=== PATIENT | male | born 1985 | race Caucasian/White ===

== ENCOUNTER 2019-01-04 06:04 | Inpatient (IN) | payer OTHER, SELFPAY ==
[2018-12-21 14:20] VITALS: BMI 20.7
[2019-01-04] VITALS (16 sets, daily range): BP systolic 119–149; BP diastolic 70–88; PULSE 72–93; RESP 10–18; TEMP 36.4–37.1; O2SAT 95–100; BMI 20.4
[2019-01-04] MEDS: LACTATED RINGERS 1,000 ML 42 ML IV ×2 (07:00→10:54)
--- NOTE | 2019-01-04 07:22 | PM.PREOP ---
Pre-operative Note Interval Note History & Physical reviewed/Exam performed by Physician: Yes Changes to H&P: No
[2019-01-04] MEDS: CEFAZOLIN 2 GM/100 ML FROZ.PIGGY IV ×2 (07:44→15:25)
--- NOTE | 2019-01-04 08:41 | SUR.OPER ---
Prone on spine table, head in foam head support, padded chest and pelvic supports, gel pad at knees, lower legs supported by pillows; nipples, genitalia and toes free of pressure, arms secured on foam padded arm boards at <90 degrees abduction. Tape over blanket at thigh secured to table.
[2019-01-04] MEDS: SODIUM CHLORIDE 0.9% 1,000 ML, GENTAMICIN 80 MG IRR (08:50)
[2019-01-04] MEDS: VANCOMYCIN 1,000 MG VIAL 1000 MG TOP (08:50)
[2019-01-04] MEDS: THROMBIN (RECOMBINANT) 5,000 UNIT VIAL 5000 UNIT TOP (08:53)
[2019-01-04] MEDS: BUPIVACAINE 0.5% (PF) 4 ML, MORPHINE-PF 4 MG, BUTORPHANOL 1 MG, fentaNYL 100 MCG INJ (08:56)
[2019-01-04] MEDS: ACETAMINOPHEN IV 1,000 MG/100 ML VIAL 400 MG IV (09:28)
--- NOTE | 2019-01-04 09:53 | PM.OP.1 ---
Operative Date/Time/Diagnoses Date of procedure: 01/04/19 Time of procedure: 09:54 Pre-op diagnosis: Recurrent lumbar disc herniation with radiculopathy Post-op diagnosis: same Procedure & Clinicians Procedure: Revision L5-S1 laminotomy Use of microscope L5-S1 TLIF (post/post innerbody fusion) with cage L5-S1 screws Iliac crest bone graft Placement of an epidural catheter Same procedure as scheduled: Yes Indications: [age] year old male with intractable pain from a recurrent disc herniation. They had failed conservative management and requested operative intervention. Risks and benefits of surgery were discussed and appropriate consents were obtained. Surgeon: Wilder Goldsmith Compounder Helper: Kay Merino Anesthesia Type: General Operative Notes Findings: None Closure Type: primary Specimen(s): none sent Prosthetic devices, grafts, tissues, transplants, or devices: NuVasive MAS Reline screws Globus Rise cage Applied: catheter Estimated Blood Loss (mL): 10 Blood products transfused: none Procedure in detail: The patient was brought to the operating room and intubated on the table. A time-out was performed. They were then rolled over to the well-padded Calixto table in the prone position. Preoperative antibiotics were given. The back was prepped and draped in the standard sterile fashion. Using fluoroscopy, a 4 cm longitudinal incision was made to the left of the midline. We used Bovie to come down to and split the lumbodorsal fascia. Using fluoroscopy and monitoring, we then percutaneously placed Jamshidi needles down the pedicles of L5 and S1 on the left side. These were changed out to guidewires and then we tapped and then placed the NuVasive MAS Reline screw shanks. We then opened up the retractors and used Bovie to clear up the posterolateral gutter as well as medially along the lamina with care at the edge of his previous laminotomy. A bur was used to decorticate the transverse process and ala. We brought in the microscope. Using a combination of bur and Kerrison rongeurs, a revision left-sided laminotomy. We took more bone and did a partial facetectomy. We cleared out the neural foramen. We then began working more along the medial aspect and dissecting the scar tissue off the dura. We carefully peeled this off until the dura was more mobile. It was still adherent to the disc tissue underneath. We used the [place] and ball probe to carefully dissect the dura medially over the disc herniation. There was an extremely large disc herniation which corresponded with his MRI. Once we had the dura free, and an annulotomy was performed with a scalpel and pituitary was used to perform the diskectomy. This completed the revision diskectomy at L5-S1. This was separate and distinct from the TLIF approach as we had to do a revision laminotomy and revision diskectomy which had much more extensive time and risk decompressing through the scar tissue. We then began the TLIF prep. The remainder of the facetectomy was performed on this side at L5-S1. We carefully cleaned up the remainder of the foramen until we could easily retract the exiting root as well as clearing medially below the dura and expose the disc space. We performed a diskectomy using a combination of paddles, shanti, pituitaries, and curettes. We distracted the disc using a paddle and locked the retractor in an open position. We then filled the disc space with Osteocell bone graft. We then placed the globus Rise cage under fluoroscopy and then filled this in with more bone graft. The distraction on the retractor was released to compress down. This completed the posterior interbody fusion portion of the TLIF at L5-S1. We then placed the screw heads, paresh, and locked down the set screws. The wound was copiously irrigated. A small stab incision was made over the PSIS. We used a Jamshidi needle to aspirate several mL of bone marrow from the pelvis. This was mixed with the remaining Osteocell and combined with all of the locally harvested bone graft and placed in the posterolateral gutter for the posterior fusion of the TLIF at L5-S1. An epidural catheter was then placed in the spinal canal by carefully depressing the dura and advancing it 6 cm cephalad under the remaining lamina without resistance. The muscle fascia was closed. The catheter was then injected with a solution containing 4 mL of 0.5% Marcaine, 1 mg Stadol, 4 mg Duramorph, and 100 mcg of fentanyl. This was injected without resistance and the catheter was pulled. We then went to the opposite side. Again using fluoroscopy, a 3 cm incision was made and Bovie was used to come down to split the fascia. Using neural monitoring and fluoroscopy, Jamshidi needles were advanced down the pedicles of L5 and S1 on the right side. These were switched over guidewires, tapped, and screws placed. We then placed a paresh and locked the set screws on this side. The wound was irrigated. The fascia was closed. Vancomycin powder was placed in the wounds. The superficial and skin were closed. A sterile dressing was placed. The patient was then rolled over extubated and brought to recovery room without complications. Complications: none Condition: stable Disposition: PACU Plan for aftercare: Inpatient. Up with physical therapy.
--- NOTE | 2019-01-04 10:10 | DI.RAD.S_ITS ---
PROCEDURE: XR LUMBAR SPINE 2-3V INDICATIONS: L5-S1 TLIF TECHNIQUE: 2 views of the lumbar spine were acquired. [facility], [facility], 9:07. FINDINGS: 2 intraoperative fluoroscopy images demonstrate discectomy and posterior fusion at L5-S1. The alignment is normal. Surgical hardware appear in appropriate position. IMPRESSION: Discectomy and posterior fusion at L5-S1. Dictated by: Klaus Mcadams M.D. on 01/04/2019 at 10:22 Approved by: Klaus Mcadams M.D. on 01/04/2019 at 10:23
[2019-01-04] MEDS: HYDROMORPHONE 2 MG INJ 1 MG IV ×2 (10:28→10:39)
[2019-01-04] MEDS: hydrOXYzine 50 MG/ML INJ 25 MG IM (10:44)
[2019-01-04] MEDS: OXYCODONE IR 5 MG TABLET PO ×2 (10:56→12:16)
[2019-01-04] MEDS: LACTATED RINGERS 1,000 ML 125 ML IV ×2 (12:00→21:02)
[2019-01-04] MEDS: hydrOXYzine pamoate 25 MG CAPSULE PO (12:16)
--- NOTE | 2019-01-04 12:38 | SUR.PHASEI ---
late entry: pt arrived awake to pacu, dressing remained c/d/i, pain treated with dilaudid, oxycodone and vistaril. pt transported up to room and left in stable condition.
--- NOTE | 2019-01-04 14:38 | PC.NURSE ---
Ortho: Epidural - can move feet but has decreased sensation from epidural. Does have pain down the lt side of back and down leg but it is not as intense as it was this am. Cont pulse ox on and same was explained, O2 sats have been 94% and greater. Spouse at the bedside. Dressing is dry and intact. Forrest removed at end of case, has not voided since. Did try once with . PT will be here later to eval and stand at bedside. He might be able to void then. Needs cues to log roll but is able to verb his lami precautions. He reports the doctor told him he was a 3 pound limit for weight instead of our usual 10. Is is to follow the doctors orders. Resting comfortably at the moment.
[2019-01-04] MEDS: diphenhydrAMINE 25 MG TABLET PO ×2 (15:08→21:08)
[2019-01-04] MEDS: OXYCODONE IR 5 MG TABLET 10 MG PO ×2 (16:02→19:30)
--- NOTE | 2019-01-04 17:17 | PT.IIE ---
Current Diagnoses Intervertebral disc disorders with radiculopathy, lumbar region (01/04/19) Strain of muscle, fascia and tendon of lower back, initial encounter (01/04/19) Other specified postprocedural states (01/04/19) Surgery Performed Operation Date: 01/04/19 07:45 Actual Procedures p L5-S1 Redo discectomy w/Instru. fusion & bone graft - Wilder Goldsmith MD Surgical History (Last Updated 12/21/18 @ 14:33 by Joanie Jones RN) History of intestinal surgery (Acute) Hx of appendectomy (Acute) Hx of elbow surgery (Acute) Hx of lumbar discectomy (Acute) Hx of tonsillectomy (Acute) Medical History (Last Updated 12/21/18 @ 14:33 by Joanie Jones RN) Back pain with sciatica (Acute) Heartburn (Acute) Numbness and tingling (Acute) Skull fracture (Acute) Physical Therapy Inpatient Evaluation/Re-Eval M1 PT/OT-IP Prior Functional Status Start: 01/04/19 16:43 Freq: NEEDED Status: Active Protocol: Document 01/04/19 16:44 EA (Rec: 01/04/19 17:17 EA [id number]) Medical Review Prior Functional Status Medical History Reviewed Yes Diet/Fluid Consistency Regular Communication Alert, O x 3 Mobility and Gait Independent with ability walk > 2 blocks with no AD. No history of fall in the last 6 months Activities of Daily Living and IADL's Indep Prior Functional Level (Other details) Patient had an injury in 2014 and back surgery; states out of work since the injury and until to this date. Patient reports last injury happens while he was playing to his daughter and suddenly his back locked. Social History Household Members spouse children Living Arrangements House Number of Floors (Floors) Two Floors Number of Stairs To Enter/Railing? 1 step to get in to the main floor and 12 steps to get up the main bed room Home Environment Standard Height Toilet Additional Social History Comment Off work due to injury and patient is on L& I since 2014. Lives with his and two children. M2 PT-IP Current Condition Start: 01/04/19 16:43 Freq: NEEDED Status: Active Protocol: Document 01/04/19 16:44 EA (Rec: 01/04/19 17:17 EA [id number]) Physical Therapy Current Condition Precautions Lumbar Precautions Log Roll No Twisting Limit Bending Lifting Restriction of 10 lbs Gait Belt above Incisional Area Weight Bearing Status Weight Bearing Status Weight Bear as Tolerated M3 PT-IP Subjective Start: 01/04/19 16:43 Freq: NEEDED Status: Active Protocol: Document 01/04/19 16:44 EA (Rec: 01/04/19 17:17 EA [id number]) Subjective Physical Therapy Visit Type Type Initial Evaluation Visit Start Time 15:15 Visit Stop Time 15:45 Total Visit Minutes 45 Number of POUNCING MACHINE OPERATOR Visits 0 Physical Therapy Visit Comments Patient Comments Patient would like to use the bathroom. Patient Goals Patient would like to be discharge tomorrow and hoping be able to walk and transfers without assistance Therapy Pain Assessment Pain When Pain Assessed At Rest Pain Present Pain Present Pain Reported Location Lower Back Intensity 2 Scale Used Numeric (1 - 10) Description Acute M4 PT-IP Mobility and Gait Start: 01/04/19 16:43 Freq: NEEDED Status: Active Protocol: Document 01/04/19 16:44 EA (Rec: 01/04/19 17:17 EA [id number]) PT-Bed Mobility Assessment Rolling Type of Rolling Log Rolling Roll to Left Level of Assist Standby Assistance Supine to Sit Supine to Sit Contact Guard Assistance Sit to Supine Sit to Supine Contact Guard Assistance Scooting Scooting to Edge of Bed Standby Assistance PT-Transfer Assessment Sit to and From Stand Sit to and from Stand Standby Assistance Equipment Transfer Assistive Device Gait Belt Transfers Transfer Destination Bed Toilet Transfer Technique stepping Transfer Ability Level of Assist Contact Guard Assistance Comments Mobility Comments No dizziness and understands safety. Uses IV pole to left hand for support during transfer slight instability and decreased tolerance. Vitals: 143/83, 92bpm (after) 129/60, 92 (prior) Gait Assessment Gait Gait Assistance Required: Standby Assistance Distance (Feet) 20 Assistive Devices Assistive Device Gait Belt Gait Deviations General Gait Pattern Within Normal Limits Factors Limiting Gait Function Factors Limiting Gait Function Decreased Activity Tolerance Pain PT-Balance Assessment Sitting Balance and Reactions Static Sitting Balance Ability Good Dynamic Sitting Balance Ability Good Standing Balance and Reactions Static Standing Balance Ability Good Dynamic Standing Balance Ability Fair M5 PT-IP Objective Assessments Start: 01/04/19 16:43 Freq: NEEDED Status: Active Protocol: Document 01/04/19 16:44 EA (Rec: 03/21/19 17:17 EA [id number]) Orientation Orientation/Cognition Level of Alertness Alert Orientation Name Age Language Function Ability No Deficits Noted Safety Awareness Understands Safety Issues Memory Description No Deficits Noted Gross Range of Motion Upper Extremity ROM Assessment Within Functional Limits Lower Extremity ROM Assessment Within Functional Limits Strength Upper Extremity Strength Assessment Within Functional Limits Lower Extremity Strength Assessment Within Functional Limits Comments Strength Comments Patient exhibits decreased tolerance to standing mobility with slight instability noted that requires him to use IV pole to support his balance. Patient tolerated 20 ft of amb with no nausea or dizziness. Patient requires assistance at this time for safety. He will benefit with skilled PT to reach independent mobility prior to discharge. Coordination Assessment Gross Coordination Gross Coordination WNL Assessment Finger to Nose Test Normal Performance Sensation Assessment Sensation Gross Sensation WNL Light Touch Intact Proprioception (Position) Intact M6 PT-IP Treatment Start: 01/04/19 16:43 Freq: NEEDED Status: Active Protocol: Document 01/04/19 16:44 EA (Rec: 01/04/19 17:17 EA [id number]) Physical Therapy Treatment Education Education Provided Precautions Weight Bearing Status Post-Op Packet Safety M7 PT-IP Assessment and Plan Start: 01/04/19 16:43 Freq: NEEDED Status: Active Protocol: Document 01/04/19 16:44 EA (Rec: 01/04/19 17:17 EA [id number]) PT Summary Assessment and Plan Potential Rehabilitation Potential Good Status of Condition at Evaluation Stable Summary Impairments Pain Strength Balance Bed Mobility Transfers Gait Activity Tolerance Progress Towards Goals Progressing Toward Goals Goals Bed Mobility Goal Independent Transfer Goal Independent Gait Goal Independent Gait Distance 150 ft Other Goals 12 steps w/ single rail Days to Meet Goals 2 Frequency of Treatment Frequency Of Treatment Twice a Day Treatment Plan Physical Therapy Treatment Plan Bed Mobility Training Transfer Training Gait Training Therapeutic Exercise Post Op Education Discharge Planning Hot or Cold Pack Recommendations To Nursing Amount of Assist Needed 1 Person Assist Discharge Recommendations PT Discharge Recommendations Home with Assistance
[2019-01-05] MEDS: CEFAZOLIN 2 GM/100 ML FROZ.PIGGY IV (00:32)
[2019-01-05] MEDS: OXYCODONE IR 5 MG TABLET 10 MG PO ×4 (00:42→13:47)
[2019-01-05] MEDS: hydrOXYzine pamoate 25 MG CAPSULE PO ×4 (00:42→13:47)
[2019-01-05 00:50] VITALS: BP 123/68; PULSE 86; RESP 16; TEMP 36.6; O2SAT 99
[2019-01-05] MEDS: LACTATED RINGERS 1,000 ML 125 ML IV (05:40)
[2019-01-05 05:49] VITALS: BP 112/58; PULSE 74; RESP 16; TEMP 36.5; O2SAT 100
[2019-01-05 05:53] LABS: Hematocrit 37.3 % (41-53); Hemoglobin 12.5 g/dL (13.5-17.5)
[2019-01-05] MEDS: DOCUSATE 100 MG CAPSULE PO (07:51)
[2019-01-05] MEDS: CYCLOBENZAPRINE 10 MG TABLET PO (07:51)
[2019-01-05] MEDS: GABAPENTIN 100 MG CAPSULE PO (07:51)
--- NOTE | 2019-01-05 08:02 | PM.PNPO.1 ---
Subjective Date Patient Seen: 01/05/19 Time Patient Seen: 08:02 Interval history: He is doing very well. Some discomfort in the left lower back but the legs are fine. He had significant pain in the back with urinary retention yesterday. His Forrest was replaced and he had 1400 mL output. Tremendous relief of this pain once this was taken care of. Exam Vital Signs (past 8 hours): - 01/05/19 00:50 01/05/19 05:49 Temperature 97.8 F 97.7 F Pulse Rate 86 74 Respiratory Rate 16 16 Blood Pressure 123/68 112/58 L Pulse Oximetry 99 100 Oxygen Delivery Method Room Air Oxygen Flow Rate 0 Const Orientation: alert and oriented x3 Back/Spine/Pelvis Other: CDI. 5/5 motor both lower extremities. Objective Labs Result Diagrams: 01/05/19 05:38 Labs: Laboratory Results - last 24 hr 01/05/19 05:38 Hgb 12.5 L Hct 37.3 L Assessment & Plan Post-op Postoperative Procedures Operation Date: 01/04/19 07:45 Actual Procedures Side Surgeon p L5-S1 Redo discectomy w/Instru. fusion & bone graft Wilder Goldsmith MD He is doing very well today. I explained his epidural pain relief will probably wear off and pain levels will probably increase a little. Removed the catheter today. Anticipate discharge home tomorrow.
--- NOTE | 2019-01-05 08:08 | PM.PNPO.1 ---
Subjective Date Patient Seen: 01/05/19 Time Patient Seen: 08:09 Interval history: He is doing very well. He has been out of bed and walking around twice today. Pain is manageable on medication. Exam Vital Signs (past 8 hours): - 01/05/19 00:50 01/05/19 05:49 Temperature 97.8 F 97.7 F Pulse Rate 86 74 Respiratory Rate 16 16 Blood Pressure 123/68 112/58 L Pulse Oximetry 99 100 Oxygen Delivery Method Room Air Oxygen Flow Rate 0 Const Orientation: alert and oriented x3 Back/Spine/Pelvis Other: Mild drainage at the bottom. 5/5 motor both lower extremities. Objective Labs Result Diagrams: 01/05/19 05:38 Labs: Laboratory Results - last 24 hr 01/05/19 05:38 Hgb 12.5 L Hct 37.3 L Assessment & Plan Post-op Postoperative Procedures Operation Date: 01/04/19 07:45 Actual Procedures Side Surgeon p L5-S1 Redo discectomy w/Instru. fusion & bone graft Wilder Goldsmith MD He is doing very well after his hardware exchange and refusion. He feels comfortable with going home today. Plan for discharge after physical therapy.
[2019-01-05 09:34] VITALS: BP 110/59; PULSE 80; RESP 16; TEMP 36.8; O2SAT 97
--- NOTE | 2019-01-05 10:35 | PT.IPTN ---
Current Diagnoses Intervertebral disc disorders with radiculopathy, lumbar region (01/04/19) Strain of muscle, fascia and tendon of lower back, initial encounter (01/04/19) Other specified postprocedural states (01/04/19) Surgery Performed Operation Date: 01/04/19 07:45 Actual Procedures p L5-S1 Redo discectomy w/Instru. fusion & bone graft - Wilder Goldsmith MD Physical Therapy Treatment Note M2 PT-IP Current Condition Start: 01/04/19 16:43 Freq: NEEDED Status: Active Protocol: Document 01/05/19 08:02 DLM (Rec: 01/05/19 08:02 DLM [id number]) Physical Therapy Current Condition Current Condition Evaluation Date 01/04/19 Treatment Diagnosis L5-S1 TLIF Onset Date 01/04/19 Precautions Lumbar Precautions Log Roll No Twisting Limit Bending Lifting Restriction of 10 lbs Gait Belt above Incisional Area M3 PT-IP Subjective Start: 01/04/19 16:43 Freq: NEEDED Status: Active Protocol: Document 01/05/19 10:35 GGD (Rec: 01/05/19 11:55 GGD [id number]) Subjective Physical Therapy Visit Type Type Treatment Note Visit Start Time 10:20 Visit Stop Time 10:40 Total Visit Minutes 20 Number of CUSTOMER ACCOUNT SPECIALIST Visits 1 Physical Therapy Visit Comments Patient Comments Pt willing to work with therapy. M4 PT-IP Mobility and Gait Start: 01/04/19 16:43 Freq: NEEDED Status: Active Protocol: Document 01/05/19 10:35 GGD (Rec: 01/05/19 11:55 GGD [id number]) PT-Transfer Assessment Sit to and From Stand Sit to and from Stand Standby Assistance Equipment Transfer Assistive Device None Gait Belt Front Wheeled Walker Transfers Transfer Destination Chair Transfer Ability Level of Assist Contact Guard Assistance Gait Assessment Gait Gait Assistance Required: Standby Assistance Distance (Feet) 780 Assistive Devices Assistive Device None Gait Belt Front Wheeled Walker Gait Deviations General Gait Pattern Within Normal Limits Factors Limiting Gait Function Factors Limiting Gait Function Decreased Activity Tolerance Pain Comments Gait Comments Pt Ambulated 450 feet with FWW and then 330 feet without. Stair Climbing Assessment Evaluation Level of Assist On Stairs Standby Assistance Devices Stair Climbing Assistive Devices None Right Railing Technique/Endurance Stair Climbing Direction Ascend and Descend Stair Climbing Technique Step Over Step Step to Step Number of Steps Climbed 3 Query Text: Stair Climbing Set # Repetitions (reps) 3 Comments Stair Climbing Comments Pt 1 set of stairs with right rail and step. 1 set with right rail with step over step . 1 set without rails and step over step. M5 PT-IP Objective Assessments Start: 01/04/19 16:43 Freq: NEEDED Status: Active Protocol: Document 01/04/19 16:44 EA (Rec: 01/04/19 17:17 EA [id number]) Orientation Orientation/Cognition Level of Alertness Alert Orientation Name Age Language Function Ability No Deficits Noted Safety Awareness Understands Safety Issues Memory Description No Deficits Noted Gross Range of Motion Upper Extremity ROM Assessment Within Functional Limits Lower Extremity ROM Assessment Within Functional Limits Strength Upper Extremity Strength Assessment Within Functional Limits Lower Extremity Strength Assessment Within Functional Limits Comments Strength Comments Patient exhibits decreased tolerance to standing mobility with slight instability noted that requires him to use IV pole to support his balance. Patient tolerated 20 ft of amb with no nausea or dizziness. Patient requires assitance at this time for safey. He will benefit with skilled PT to reach independent mobility prior to discharge. Coordination Assessment Gross Coordination Gross Coordination WNL Assessment Finger to Nose Test Normal Performance Sensation Assessment Sensation Gross Sensation WNL Light Touch Intact Proprioception (Position) Intact M6 PT-IP Treatment Start: 01/04/19 16:43 Freq: NEEDED Status: Active Protocol: Document 01/05/19 10:35 GGD (Rec: 01/05/19 11:55 GGD [id number]) Physical Therapy Treatment Education Education Provided Precautions Safety M7 PT-IP Assessment and Plan Start: 01/04/19 16:43 Freq: NEEDED Status: Active Protocol: Document 01/05/19 10:35 GGD (Rec: 01/05/19 11:55 GGD [id number]) PT Summary Assessment and Plan Frequency of Treatment Frequency Of Treatment Twice a Day Treatment Plan Physical Therapy Treatment Plan Bed Mobility Training Transfer Training Gait Training Therapeutic Exercise Post Op Education Discharge Planning Hot or Cold Pack Other Recommendations and Next Treatment bed mobility and sit to stand Focus Recommendations To Nursing Amount of Assist Needed 1 Person Assist Discharge Recommendations PT Discharge Recommendations Home with Assistance
[2019-01-05] MEDS: ACETAMINOPHEN 325 MG TABLET 650 MG PO (12:07)
--- NOTE | 2019-01-05 12:19 | OT.IP.EVAL ---
Current Diagnoses Intervertebral disc disorders with radiculopathy, lumbar region (01/04/19) Strain of muscle, fascia and tendon of lower back, initial encounter (01/04/19) Other specified postprocedural states (01/04/19) Surgery Performed Operation Date: 01/04/19 07:45 Actual Procedures p L5-S1 Redo discectomy w/Instru. fusion & bone graft - Wilder Goldsmith MD Past Medical History (Last Updated 12/21/18 @ 14:33 by Joanie Jones RN) Back pain with sciatica (Acute) Heartburn (Acute) Numbness and tingling (Acute) Skull fracture (Acute) Surgical History (Last Updated 12/21/18 @ 14:33 by Joanie Jones RN) History of intestinal surgery (Acute) Hx of appendectomy (Acute) Hx of elbow surgery (Acute) Hx of lumbar discectomy (Acute) Hx of tonsillectomy (Acute) Occupational Therapy Inpatient Evaluation/Re-Eval M3 OT- IP Subjective and Pain Start: 01/05/19 12:04 Freq: Status: Active Protocol: Document 01/05/19 12:05 [facility] (Rec: 01/05/19 12:19 [facility] [id number]) OT- Subjective Occupational Therapy Visit Type Type Initial Evaluation Visit Start Time 10:10 Visit Stop Time 10:55 Total Visit Minutes 45 Occupational Therapy Visit Comments Patient Comments Pt agreeable to do OT eval, pt ' present and 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 OT Pain Assessment Pain When Pain Assessed At Rest Pain Present Pain Present Pain Reported Location Lower Back Intensity 5 Scale Used Numeric (1 - 10) M4 OT- IP ADL's Start: 01/05/19 12:04 Freq: Status: Active Protocol: Document 01/05/19 12:05 [facility] (Rec: 01/05/19 12:19 [facility] [id number]) OT ADL-Dressing General Eval Upper Body Dressing Ability Standby Assistance Lower Body Dressing Ability Maximum Assistance Areas Needing Assistance Pants/Shorts Socks Shoes Comments OT Dressing Comments Prior to education of LB AED, pt needing MAX A for Lb dressing. Pt educated and still needing vc for use of sock aid and ESTUARDO for shoes. OT ADL-Toileting Comments OT Toileting Comments Pt's catheter just taken out, educated to stand for pericare needs. OT ADL-Bathing Comments OT Bathing Comments Pt's will assist pt for shower here and aware of all back precautions and needs. Pt may need shower chair pending pt's ability to stand, otherwise for safety if needing a place to sit. M5 OT- IP IADL's Start: 01/05/19 12:04 Freq: Status: Active Protocol: Document 01/05/19 12:05 [facility] (Rec: 01/05/19 12:19 [facility] [id number]) OT-Instrumental Activities of Daily Living Money Management Money Management Caregiver Provides Assistance Meal Preparation Meal Preparation Caregiver Provides Assist Database Developer Database Developer Caregiver Provides Assist Driving Driving Caregiver Provides Assist M6 OT- IP Functional Cognition Start: 01/05/19 12:04 Freq: Status: Active Protocol: Document 01/05/19 12:05 [facility] (Rec: 01/05/19 12:19 [facility] [id number]) Cognitive Factors Limiting Selfcare Function Cognitive Ability Level of Alertness Alert Patient Orientation Name Age Birthday Month Date Year Day of Week Place Situation Attention Span Ability Capable of Focused Attention Capable of Sustained Attention Ability to Follow Commands Able to Follow One Step Commands Memory Description Short Term Impaired Safety Awareness Decreased Ability to Apply Precautions Underestimates Need for Assistance Problem Solving Ability Needs Assist to Identify Solutions Cognitive Comments Cognitive Assessment Comments Pt needing concrete commands and repeat instructions of how to use socks aid. Pt appears a bit groggy at times. Pt needing cues to follow back precautions as at times forgets not to twist or bend. OT- Vision and Hearing OT- Hearing Assessment OT- Hearing Assessment WFL M7 OT- IP Mobility and Balance Start: 01/05/19 12:04 Freq: Status: Active Protocol: Document 01/05/19 12:05 [facility] (Rec: 01/05/19 12:19 [facility] [id number]) OT-Transfer Assessment Sit to and From Stand Sit to and from Stand Standby Assistance Transfers Transfer Ability Standby Assistance Technique Transfer Destination Bed Chair Devices Transfer Assistive Devices None Gait Belt Comments Mobility Comments SBA for flat surfaces, pt tends to have a very wide base of support. Pt actually walks better without FWW as able to take wider steps to help his balance better. Pt needing cues to bend at hip and lean forwards so able to use legs better to latin teacher addition to use of hand on surface to push off of. 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 part of the session OT- Balance Assessment Sitting Balance and Reactions Static Sitting Balance Ability Normal Dynamic Sitting Balance Ability Good Standing Balance and Reactions Static Standing Balance Ability Good Dynamic Standing Balance Ability Fair M8 OT- IP Objective Assessments Start: 01/05/19 12:04 Freq: Status: Active Protocol: Document 01/05/19 12:05 [facility] (Rec: 01/05/19 12:19 [facility] [id number]) OT Gross Range of Motion Upper Extremity Range of Motion Assessment Within Functional Limits M9 OT- IP Assessment and Plan Start: 01/05/19 12:04 Freq: Status: Active Protocol: Document 01/05/19 12:05 [facility] (Rec: 01/05/19 12:19 [facility] [id number]) OT Summary Assessment and Plan Potential Rehabilitation Potential Good Analytic Complexity at Evaluation Low Summary OT Impairments Pain Balance Functional Cognition Bathing Progress Towards Goals Progressing Toward Goals Slow Progress due to Pain Slow Progress due to Cognition Assessment Summary Pt low complexity and main barriers are steps , needing reminders to follow back precautions, and pain. Pt's has good understanding to assist pt at home and will be there to assist at all times. Otherwise pt's kids can also assist. Pt issued LB AED. Pt to go home with when medically stable. Goals Patient/Caregiver Education Goal Demonstrate Post-Op Precautions Caregiver Independent Assisting Patient Days to Meet Goals 2 Frequency of Treatment Frequency Of Treatment Once a Day Treatment Plan OT Treatment Plan Functional Cognition Training Patient/Family Education Discharge Planning Other Treatment Recommendations and Next Finalize all OT needs Treatment Focus Discharge Recommendations OT Discharge Recommendations Home with Assistance Home Equipment Needs shower stool/chair
--- NOTE | 2019-01-05 12:25 | PC.NURSE ---
Ortho: Nervous about voiding. Forrest out, has voided x2, first time 25mls, second time 125mls. If sm amts cont will bladder scan later today. Pt doesn't think he will have a problem since he is able to get at least some urine out. Will monitor voiding. Worked w/PT and has been d/c from their perspective. OT has been working w/pt, they discussed shower, spouse did the shower with pt since he felt more comfortable with her. Dressing changed to cover site. Bilat incsions are sutured w/minimal redness. No drainage seen. Pt is tolerating diet w/out problems and po pain meds have been effective. If he has no problems with voiding he feels as if he could d/c home later today. Cont w/poc.
--- NOTE | 2019-01-05 13:03 | OT.IP.TRT ---
Current Diagnoses Intervertebral disc disorders with radiculopathy, lumbar region (01/04/19) Strain of muscle, fascia and tendon of lower back, initial encounter (01/04/19) Other specified postprocedural states (01/04/19) Surgery Performed Operation Date: 01/04/19 07:45 Actual Procedures p L5-S1 Redo discectomy w/Instru. fusion & bone graft - Wilder Goldsmith MD Occupational Therapy Treatment Note M2 OT-IP Current Condition Start: 01/05/19 12:04 Freq: Status: Active Protocol: Document 01/05/19 12:05 [facility] (Rec: 01/05/19 12:19 [facility] [id number]) Occupational Therapy Current Condition Current Condition Evaluation Date 01/05/19 Treatment Diagnosis Recurrent lumbar disc herniation with radiculopathy Diagnosis Onset Date 01/04/19 Post Operative Precautions Lumbar Precautions Log Roll No Twisting Limit Bending Lifting Restriction of 10 lbs Gait Belt above Incisional Area M3 OT- IP Subjective and Pain Start: 01/05/19 12:04 Freq: Status: Active Protocol: Document 01/05/19 13:01 [facility] (Rec: 01/05/19 13:03 [facility] [id number]) OT- Subjective Occupational Therapy Visit Type Type Administrative Note Notes Pt will benefit from shower chair, per pt unable to stand for shower with and needing to sit to shower. Therefore also BSC would also be beneficial to pt as pt heavily relies on his arms to help to stand by pushing from surface sitting on to come to stand.
--- NOTE | 2019-01-05 13:44 | CM.DANOTE ---
Discharge Planning/Care Management DCP: assessment: case received and discussed in Team Rounds. Pt is a 33 year old male who admitted yesterday to Dr. Goldsmith for a planned spinal surgery. PT and OT saw him today. Payer: [facility] Urinary retentition was noted by Dr. Goldsmith and a shelby catheter was placed. The plan earlier today was for pt to stay until tomorrow as epidural wore off and to insure that he was voiding appropriately. OT noted pt would need a shower chair, BSC and single point cane at d/c/he wished to have a script to get same through [facility]. Met now with pt and his . Introduced self and role. Pt has now been ok'd for d/c today as he has voided increasing amts of urine. RN Galina confirms same. He says he is very pleased he can go home today and his says they are aware that they need to make sure he keeps voiding appropriately. Orders for the needed DME were obtained and copy to patient. He says he will purchase the items if need be but wants to make sure he also runs it through his insurance. CM Discharge Assessment Start: 01/05/19 13:42 Freq: Status: Active Protocol: Document 01/05/19 13:43 ITV (Rec: 01/05/19 13:43 ITV [id number]) Discharge Planning Assessment Advance Directives? No: Information mailed to patient Advance Directives on File No History Provided By Patient Family Member Medical Record Prior Living Arrangements House Household Members spouse children Independent with ADL's Yes Is patient alert and oriented? Yes Whiteboard Updated in Patient Room with Yes name and ext. # of Manager Of Production Review Status In Process Next Review Type Continued Stay Review Pre-Anesthesia Assessment Start: 12/21/18 14:01 Freq: Status: Complete Protocol: Document 12/21/18 14:20 [facility] (Rec: 12/21/18 14:53 [facility] [id number]) Pre-Anesthesia Assessment Patient Information Reviewed Via Phone Assessment Assessment Completed With Patient Diagnostic Results CBC Comment Outside labs-CBC done 12/27/18 Seen Specialist in Last 12 Months Yes Specialist Seen Orthopedist Primary Language Vietnamese Creative Director Required No Height 175.26 cm Weight 63.503 kg Body Mass Index (BMI) 20.7 Hearing Ability Normal Visual Impairment No Limitations Visual Assist None Dentition Type Teeth, Natural Present Barriers to Learning None Other Aids No Hx Anesthesia Reactions No Hx Family Anesthesia Reaction No Hx Malignant Hyperthermia No Hx Blood Transfusions No Anesthesia Review Requested No Dry Transfer Man No alcohol intake never Smoking Status Former smoker how long ago did patient quit smoking Quit 10/03 Substance Use Type marijuana Comment Pt advised not to smoke 24 hours prior to surgery Pain Present Pain Reported Musculoskeletal Symptoms Abnormal Gait Back Pain Difficulty Walking Joint Pain Numbness Radiating Pain into Limb Tingling History of Falling (Recent or History of Yes ) Patient is completely paralyzed or No completely immobile Mental Status Oriented to own ability Is patient on oxygen? No Does patient have WONG/SOB No Hx Sleep Apnea No Currently Taking a Beta Joellen No Can You Climb a Flight of Stairs Without Yes SOB Hx Chest Pain No Hx SOB No Hx Syncope or Dizziness Yes: Syncopal episode x 1 month ago, got up quickly Anti-Coagulant Therapy No Has a Configuration Consultant No Cardiac Testing No Hx Pacemaker/ICD No Pacemaker Rep Required? No Cardiac Clearance Received Not Applicable Diet Type At Home Regular dysphagia No Urinary Catheter Present No Hx Urinary Self Catheterization No Diabetes No Hx Drug Resistant Organism No Presence of External or Internal Medical No Devices Have you traveled outside the [facility] States in the last 30 days? Marital Status Lives With spouse children Prior Living Arrangements House Number of Floors (Floors) Two Floors Number of Stairs To Enter/Railing? none Support System Spouse Does the Patient Have Assistance After Yes Surgery Patient Discharge Plan Description Return Home Feels Safe in Current Environment Yes Been Physically Hurt or Threatened By a No Person in Current Environment Do you have thoughts of harming yourself None or others? Are you currently considering suicide? No Do you have a plan to hurt yourself or No Plan others? Do You Have Any Spiritual Beliefs That No May Affect Your HC Choices? Do You Have Any Cultural Practices That No May Affect Your HC Choices? Comment Rbuen Who Can We Speak to About Patient's Care Family, friends Identifying Code for Release of Patient Black lab Information Health Care Proxy/Next of Kin Joslyn () Health Care Proxy Emergency Contact Name Joslyn () Emergency Contact Advance Directives? No: Information mailed to patient Advance Directives on File No Requested Patient Bring Advanced Yes Directives DOS PAC Instructions Do not shave/clip surgical site Durable medical equipment Medications to take/avoid Nasal antibiotic No ETOH/petroleum product on skin DOS NPO Post-op transportation Pre-surgical wash Sturdy shoes/comfortable clothes Do not bring valuables and remove jewelry
--- NOTE | 2019-01-05 14:04 | PT.IPTN ---
Current Diagnoses Intervertebral disc disorders with radiculopathy, lumbar region (01/04/19) Strain of muscle, fascia and tendon of lower back, initial encounter (01/04/19) Other specified postprocedural states (01/04/19) Surgery Performed Operation Date: 01/04/19 07:45 Actual Procedures p L5-S1 Redo discectomy w/Instru. fusion & bone graft - Wilder Goldsmith MD Physical Therapy Treatment Note M2 PT-IP Current Condition Start: 01/04/19 16:43 Freq: NEEDED Status: Active Protocol: Document 01/05/19 08:02 DLM (Rec: 01/05/19 08:02 DLM [id number]) Physical Therapy Current Condition Current Condition Evaluation Date 01/04/19 Treatment Diagnosis L5-S1 TLIF Onset Date 01/04/19 Precautions Lumbar Precautions Log Roll No Twisting Limit Bending Lifting Restriction of 10 lbs Gait Belt above Incisional Area M3 PT-IP Subjective Start: 01/04/19 16:43 Freq: NEEDED Status: Active Protocol: Document 01/05/19 13:10 YVES (Rec: 01/05/19 14:04 LJ [id number]) Subjective Physical Therapy Visit Type Type Treatment Note Visit Start Time 13:10 Visit Stop Time 13:35 Total Visit Minutes 25 Physical Therapy Visit Comments Patient Comments Pt willing to work with therapy. Patient Goals Waiting perscription orders for home equipment. Wanting to trial SPC Therapy Pain Assessment Pain When Pain Assessed During Mobility Pain Present Pain Present Pain Reported M4 PT-IP Mobility and Gait Start: 01/04/19 16:43 Freq: NEEDED Status: Active Protocol: Document 01/05/19 13:10 [facility] (Rec: 01/05/19 14:04 LJ [id number]) PT-Transfer Assessment Sit to and From Stand Sit to and from Stand Standby Assistance Use of Upper Extremities Equipment Transfer Assistive Device None Gait Belt Straight Cane Front Wheeled Walker Transfers Transfer Destination Chair Transfer Ability Level of Assist Independent Standby Assistance Contact Guard Assistance Use of Upper Extremities Comments Mobility Comments Pt still with difficulty performing hip hinging with transfers. Relies heavily on FWW and UEs for standing. Educated pt on importance of body mechanics for stabilizing core muscles during activity. Gait Assessment Gait Gait Assistance Required: Independent Standby Assistance Contact Guard Assist Distance (Feet) 250 Assistive Devices Assistive Device None Gait Belt Straight Cane Front Wheeled Walker Gait Deviations General Gait Pattern Within Normal Limits Antalgic Lateral Trunk Lean Factors Limiting Gait Function Factors Limiting Gait Function Decreased Activity Tolerance Pain Comments Gait Comments Pt ambulated in room with SPC then in hallway 250'. Some instability and lateral lean which he corrected when cued to use core muscles for stability. Pt instructed to urinate prior to d/c which he did after walking out of room into hallway for 30 or so feet . Pt somewhat impulsive with ambulation but careful during transfers. M5 PT-IP Objective Assessments Start: 01/04/19 16:43 Freq: NEEDED Status: Active Protocol: Document 01/04/19 16:44 EA (Rec: 01/04/19 17:17 EA [id number]) Orientation Orientation/Cognition Level of Alertness Alert Orientation Name Age Language Function Ability No Deficits Noted Safety Awareness Understands Safety Issues Memory Description No Deficits Noted Gross Range of Motion Upper Extremity ROM Assessment Within Functional Limits Lower Extremity ROM Assessment Within Functional Limits Strength Upper Extremity Strength Assessment Within Functional Limits Lower Extremity Strength Assessment Within Functional Limits Comments Strength Comments Patient exhibits decreased tolerance to standing mobility with slight instability noted that requires him to use IV pole to support his balance. Patient tolerated 20 ft of amb with no nausea or dizziness. Patient requires assitance at this time for safey. He will benefit with skilled PT to reach independent mobility prior to discharge. Coordination Assessment Gross Coordination Gross Coordination WNL Assessment Finger to Nose Test Normal Performance Sensation Assessment Sensation Gross Sensation WNL Light Touch Intact Proprioception (Position) Intact M6 PT-IP Treatment Start: 01/04/19 16:43 Freq: NEEDED Status: Active Protocol: Document 01/05/19 10:35 GGD (Rec: 01/05/19 11:55 GGD [id number]) Physical Therapy Treatment Education Education Provided Precautions Safety M7 PT-IP Assessment and Plan Start: 01/04/19 16:43 Freq: NEEDED Status: Active Protocol: Document 01/05/19 13:10 LJ (Rec: 01/05/19 14:04 LJ [id number]) PT Summary Assessment and Plan Potential Rehabilitation Potential Good Status of Condition at Evaluation Stable Summary Impairments Pain Strength Balance Bed Mobility Transfers Gait Activity Tolerance Progress Towards Goals Progressing Toward Goals Goals Bed Mobility Goal Independent Transfer Goal Independent Gait Goal Independent Gait Distance 150 Other Goals 12 steps w/ single rail Days to Meet Goals 2 Frequency of Treatment Frequency Of Treatment Twice a Day Treatment Plan Physical Therapy Treatment Plan Bed Mobility Training Transfer Training Gait Training Therapeutic Exercise Post Op Education Discharge Planning Hot or Cold Pack Other Recommendations and Next Treatment bed mobilty and sit to stand Focus Recommendations To Nursing Amount of Assist Needed 1 Person Assist Discharge Recommendations PT Discharge Recommendations Home with Assistance
--- NOTE | 2019-01-05 14:14 | PC.NURSE ---
Discharge: Pt able to void, bladder scanned for 107mls, voided 250mls. Then an hour after that he voided in the toilet. He feels ready to d/c home. Spouse also feels comfortable with him going home. Dr. Goldsmith called and notified of pt's ability voided, and he would like to be discharged. Already has scripts. Order obtained for d/c home. Reviewed d/c information with pt and spouse. Has seen PT/OT and they have signed off on patient and he has a script from them for supplies for home. Dressing had been changed earlier to coversite and it remains dry and intact. Questions answered. Pt d/c home via auto w/spouse.
== END 2019-01-05 14:10 | disposition home or self-care (01) | DRG 304 ==
PROVIDERS: Admitting Provider Orthopaedic Surgery; Visit Provider Orthopaedic Surgery
PROC: 0SG30AJ Fusion of Lumbosacral Joint with Interbody Fusion Device, Posterior Approach, Anterior Column, Open Approach (ICD-10-PCS; principal; 2019-01-04 07:45)
DX: M48.061 Spinal stenosis, lumbar region without neurogenic claudication (principal); M51.16 Intervertebral disc disorders with radiculopathy, lumbar region; M96.1 Postlaminectomy syndrome, not elsewhere classified; R33.9 Retention of urine, unspecified
CPT/HCPCS: 36415; 72100; 76000; 85014; 85018; 97116; 97161; 97165; 97530; 97535; C1776; J0131; J0330; J0595; J0690; J1100; J1170; J2250; J2274; J2405; J2704; J3010; J3410

== ENCOUNTER → 2020-06-16 10:27 | Outpatient (CLI) | payer OTHER, SELFPAY ==
[2019-01-04 11:39] VITALS: BMI 20.4
--- NOTE | 2020-06-16 | DI.MRI.S_ITS ---
PROCEDURE: MR LUMBAR SPINE WO CON INDICATIONS: Intervertebral disc disorders with radiculopathy, LUMBAR REG TECHNIQUE: Noncontrast sagittal T1 spin echo and T2 fast echo, sagittal STIR, axial T1 and T2 fast spin echo through the lumbar spine. In cases with scoliosis, additional coronal T2 fast spin echo may be performed. COMPARISON: None. FINDINGS: Image quality: Excellent. Postsurgical changes of L5-S1 posterior fixation by means of bilateral rods and pedicle screws. Mild marrow edema at the opposing L5-S1 endplates along with mild and fatty degenerative endplate change. Otherwise normal marrow signal intensity. Normal position and appearance of the conus. Partially visualized distal thoracic cord is normal in appearance. This. The right the Prevertebral and paraspinous soft tissues unremarkable. L1-L2: No spinal canal or neural foraminal stenosis. L2-L3: No spinal canal or neural foraminal stenosis. L3-L4: Disc bulge with a superimposed broad-based posterior disc protrusion. Disc material in the right subarticular zone displaces the right descending L4 nerve roots. Foraminal components of the disc bulge contribute to mild bilateral neural foraminal stenosis in conjunction with facet hypertrophy. L4-L5: Disc bulge and a superimposed disc extrusion spanning the subarticular zones. Disc material displaces both L5 nerve roots with possible impingement. Disc material within the foramina combines with facet hypertrophy to produce mild neural foraminal narrowing with disc material abutting the undersurfaces of the bilateral L4 nerve roots. L5-S1: Disc bulge and posterior osteophytic ridging of the L5 endplate flatten and indent the ventral thecal sac with displacement of the left greater than right S1 nerve roots in both subarticular zones. Foraminal components of the disc bulge combine with facet hypertrophy and posterior osteophytic ridging to produce mild neural foraminal stenosis without evidence of focal nerve root impingement. IMPRESSION: Postsurgical changes of L5-S1 posterior fixation with no evidence of an acute complicating hardware feature. Marrow edema at the opposing L5-S1 endplates is presumably discogenic in nature, although a component of mild dynamic instability cannot be strictly excluded. Multilevel multifactorial degenerative changes from L3-L4 through L5-S1 with possible impingement upon the descending L4, L5, and S1 nerve roots at the L3-L4 , L4-L5, and L5-S1 levels, respectively. Dictated by: Arpit Bella M.D. on 06/16/2020 at 13:45 Approved by: Arpit Bella M.D. on 06/16/2020 at 14:04
== END ==
PROVIDERS: Referring Provider Orthopaedic Surgery; Visit Provider Orthopaedic Surgery
DX: M51.16 Intervertebral disc disorders with radiculopathy, lumbar region (principal); M47.26 Other spondylosis with radiculopathy, lumbar region; M47.27 Other spondylosis with radiculopathy, lumbosacral region
CPT/HCPCS: 72148